=== PATIENT | male | born 1955 | race American Indian/Alaskan Native ===

== ENCOUNTER 2021-02-21 10:09 | Outpatient (CLI) | payer MEDICARE ==
--- NOTE | 2021-02-21 11:46 | XRay Report ---
XR chest routine 2V INDICATION / CLINICAL INFORMATION: CHRONIC KIDNEY DISEASE. COMPARISON: None available. FINDINGS: SUPPORT DEVICES: None. HEART /PULMONARY VASCULATURE: No significant abnormality. LUNGS / PLEURA: There is blunting of the right costophrenic sulcus which may reflect trace pleural fl uid or thickening/scarring. Lungs are clear of focal airspace consolidation. No pneumothorax. ADDITIONAL FINDINGS: No significant additional findings. IMPRESSION: Trace right basilar pleural fluid versus scarring. Otherwise, no acute chest process. Signer Name: Silverio Watts MD Signed: 02/21/2021 11:41 AM Workstation Name: [email or web address]
== END 2021-02-21 10:10 | disposition home or self-care (01) ==
LOC: LAB 10:09
PROVIDERS: ATTEND Internal Medicine Nephrology
DX: N18.5 Chronic kidney disease, stage 5 (principal)
CPT/HCPCS: 36415; 71046; 86705; 86706